=== PATIENT | female | born 1970 | race Asian ===

== ENCOUNTER → 2019-06-25 | Outpatient (CLI) | payer OTHER ==
[~2019-06-25] VITALS: Ht 157.5 cm; Wt 87.1 kg
[~2019-06-25] MED LIST: FISH OIL1000 MG PO; GLUCOPHAGE1000 MG PO; LIPITOR20 MG PO; MASON NATURAL2000 IU PO; SINGULAIR 110 MG/TAB PO; ZYRTEC 10MG10 MG PO
[2019-06-25 09:24] VITALS: BP 141/91; PULSE 85
[2019-06-25 10:36] VITALS: BP 137/94; PULSE 76
--- NOTE | 2019-06-25 11:22 | NUR ---
PT TAKEN DOWN TO LOBBY AMBULATORY. DIZZINESS IS MUCH IMPROVED AFTER THE SNACK. PT STATES THE VERTIGO STARTED 6 MONTHS AGO. PT'S GAIT IS STEADY.
== END ==
LOC: COL.RAD 08:58
DX: E04.2 Nontoxic multinodular goiter (principal)

== ENCOUNTER 2022-03-08 07:31 | Day surgery (SDC) | payer OTHER ==
[~2022-03-08] VITALS: Ht 157.5 cm; Wt 89.8 kg
[~2022-03-08 07:31] MED LIST changes: +ASPIRIN 81M81 MG/TA2 PO; +MIRENA52 MG IY; +NORVASC 5MG5 MG/TAB PO; +NOVOLOG MIX 70/33 ML SQ; +TOPROL XL 25MG25 MG PO
[2022-03-08] MEDS ORDERED: TRULICITY0.75 MG/0. SQ (08:04)
[2022-03-08 08:45] VITALS: BP 121/76; PULSE 82; TEMP 97.1
[2022-03-08 10:05] VITALS: BP 123/83; PULSE 80; TEMP 96.9
[2022-03-08 10:20] VITALS: BP 112/81; PULSE 77
[2022-03-08 10:35] VITALS: BP 115/82; PULSE 71
--- NOTE | 2022-03-08 11:05 | NUR ---
1005 PT RETURNED TO BAY 2 VIA CART. TRANSFERRED TO CHAIR WITH RN ASSIST. ALERT AND ORIENTED. MONITORS ATTACHED, INTERVALS AND ALARMS SET. VSS. PT DENIES PAIN OR NAUSEA. FOOD AND DRINK PROVIDED. CALL LIGHT IN REACH. CALLED TO COME BACK TO HOSPITAL. B 1020 VSS. PT DENIES DISCOMFORT. TOLERATING FOOD AND DRINK WELL. 1035 VSS. PT DENIES DISCOMFORT. AT BEDSIDE. 1050 DR IN TO SPEAK WITH PT. IV REMOVED WITHOUT COMPLICATIONS. REVIEWED DISCHARGE INSTRUCTIONS AND EDUCATION MATERIAL, ANSWERED ALL QUESTIONS. PT ALLOWED TO DRESS. 1105 TRANSFERRED PT VIA WHEELCHAIR TO PERSONAL VEHICLE TO BE DRIVEN HOME BY .
--- NOTE | 2022-03-08 12:54 | NUR ---
1105 ARACELI STRATTON TRANSFERED PT TO PERSONAL VEHICLE TO BE DRIVEN HOME BY .
== END 2022-03-08 11:05 | disposition home or self-care (01) ==
LOC: SDCO 07:31
DX: Z12.11 Encounter for screening for malignant neoplasm of colon (principal); D12.3 Benign neoplasm of transverse colon; D12.4 Benign neoplasm of descending colon; D12.5 Benign neoplasm of sigmoid colon; I10 Essential (primary) hypertension; K64.0 First degree hemorrhoids
CPT/HCPCS: J0171; J2704; J7030

== ENCOUNTER 2022-04-18 08:27 | Day surgery (SDC) | payer OTHER ==
[~2022-04-18] VITALS: Ht 157.8 cm; Wt 86.0 kg
[~2022-04-18 08:27] MED LIST changes: +TRULICITY0.75 MG/0. SQ
[2022-04-18 09:07] VITALS: BP 109/82; PULSE 78; TEMP 98.3
[2022-04-18] MEDS ORDERED: CEPHALEXIN500 M1 PO (12:44)
[2022-04-18 12:50] VITALS: BP 118/71; PULSE 78; TEMP 98.2
[2022-04-18 13:05] VITALS: BP 102/66; PULSE 76
--- NOTE | 2022-04-18 13:10 | NUR ---
Pt arrived from [employer], verbal report received at bedside and via phone; first set of vital signs initiated; pt remains sleepy though VSS; loop recorder removal incision to mid/lower chest, approximated with skin glue and steristrips and covered with bulky dressing and tape; called to update at 1258 and notified of postop abx medication for pickup; water and crackers at pts bedside; to continue to monitor postop.
[2022-04-18 13:20] VITALS: BP 111/74; PULSE 84
--- NOTE | 2022-04-18 13:22 | NUR ---
No changes to surgical incision from initial assessment; pt is now more alert and awake and is tolerating PO oral and fluid intake without incident.
[2022-04-18 13:35] VITALS: BP 112/70; PULSE 80
--- NOTE | 2022-04-18 14:29 | NUR ---
Pt verbalized comfort in discharging home; went over discharge instructions and education at bedside; PIV discontinued at 1355.
--- NOTE | 2022-04-18 14:29 | NUR ---
Pt verbalized comfort in getting dressed and ambulating within room; no changes to surgical incision and VS remain stable.
--- NOTE | 2022-04-18 14:30 | NUR ---
Pt discharge via wheelchair with to POV at 1408.
== END 2022-04-18 14:08 | disposition home or self-care (01) ==
LOC: COL.CAR 08:27
DX: Z45.09 Encounter for adjustment and management of other cardiac device (principal); Z86.73 Personal history of transient ischemic attack (TIA), and cerebral infarction without residual deficits; I10 Essential (primary) hypertension; E78.2 Mixed hyperlipidemia; I05.9 Rheumatic mitral valve disease, unspecified; G47.33 Obstructive sleep apnea (adult) (pediatric); Z79.899 Other long term (current) drug therapy
CPT/HCPCS: J0690; J2250; J3010